=== PATIENT | female | born 1995 | race Caucasian/White ===

== ENCOUNTER 2017-05-26 14:48 | Emergency (ER) | payer OTHER ==
[~2017-05-26] VITALS: Ht 172.7 cm; Wt 70.3 kg
[~2017-05-26 14:48] MED LIST: ONDANSETRON 4 MG/2 ML VIAL IVP STA
--- NOTE | 2017-05-26 14:48 | NUR ---
TAKEN TO TRIAGE VIA WHEELCHAIR---IV STARTED MD NOTIFIED
--- NOTE | 2017-05-26 14:48 | NUR ---
LARGE EMESIS IN TRIAGE---NO BRIGHT RED BLOOD NOTED IN EMESIS
[2017-05-26] MEDS ORDERED: ONDANSETRON 4 MG/2 ML VIAL ONE (14:53)
[2017-05-26 15:00] VITALS: BP 79/50
--- NOTE | 2017-05-26 15:04 | NUR ---
BLOOD COLLECTED AT IV START
--- NOTE | 2017-05-26 15:15 | NUR ---
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 PT REPORTS N/V. PT DENIES ANY PAIN, SOB, OR CP. PT IS PALE. PT IS AOX4. RR ARE EVEN AND UNLABORED. ER MD AWARE OF PT STATUS. NAD AT THIS TIME.
[2017-05-26] MEDS ORDERED: NACL 0.9% 1,000 ML IV STA ×2 (15:28→16:30)
[2017-05-26 15:43] LABS: APPEARANCE,URINE CLEAR (CLEAR); BILIRUBIN,URINE 1+ (NEGATIVE); BLOOD, URINE NEGATIVE (NEGATIVE); COLOR,URINE YELLOW (YELLOW); LEUKOCYTE ESTERASE ,URINE NEGATIVE (NEGATIVE); NITRITE, URINE NEGATIVE (NEGATIVE); UGLUCOSE NEGATIVE (NEGATIVE)
[2017-05-26 15:44] LABS: RBC,URINE 3-10 (FEW) /HPF (0-5); WBC,URINE 0-5 (RARE) /HPF (0-5)
[2017-05-26 15:49] LABS: BASOPHILS # (AUTO) 0.2 K/uL (0.00-0.22); BASOPHILS % (AUTO) 1.7 % (0.0-2.0); EOSINOPHILS # (AUTO) 0.2 K/uL (0-0.4); EOSINOPHILS % (AUTO) 1.2 % (0.0-4.0); HEMOGLOBIN 11.7 g/dL (12.0-16.0); LYMPHOCYTES # (AUTO) 2.4 K/uL (2.5-16.5); LYMPHOCYTES % (AUTO) 17.1 % (20.5-51.1); MEAN CORPUSCULAR HEMOGLOBIN 24 pg (27-31); MEAN CORPUSCULAR HGB CONC 32 g/dL (33-37); MEAN CORPUSCULAR VOLUME 75 fL (80-94); MONOCYTES % (AUTO) 7.1 % (1.7-9.3); NEUTROPHILS # (AUTO) 10.5 K/uL (1.8-7.7); NEUTROPHILS % (AUTO) 72.9 % (42.2-75.2); PLATELET COUNT (AUTO) 449 K/uL (140-450); RED BLOOD CELL COUNT(AUTO) 4.95 MIL/uL (4.20-5.40); RED CELL DISTRIBUTION WIDTH 17.8 % (11.6-13.7); WHITE BLOOD COUNT (AUTO) 14.3 K/uL (4.8-10.8)
[2017-05-26 15:52] LABS: ANION GAP 14.5 (8-16); CARBON DIOXIDE 27.9 mmol/L (21-32); CREATININE 1.2 mg/dL (0.6-1.3); POTASSIUM 3.4 mmol/L (3.5-5.1)
[2017-05-26 15:54] LABS: PROTHROMBIN TIME 11.2 secs (10.8-13.4)
[2017-05-26 15:58] LABS: TOTAL BILIRUBIN 0.7 mg/dL (0.0-1.0)
--- NOTE | 2017-05-26 16:40 | NUR ---
NS BOLUS D/C PER ER MD ORDER. END TIME FOR NS BOLUS. TOTAL AMOUNT INFUSED 2CC.
[2017-05-26 17:17] VITALS: BP 126/75
--- NOTE | 2017-05-26 17:17 | NUR ---
Patient discharged with v/s stable. Written and verbal after care instructions given and explained. Patient verbalized understanding. Ambulatory with steady gait. All questions addressed prior to discharge. Advised to follow up with PMD.
== END 2017-05-26 17:17 | disposition home or self-care (01) ==
LOC: MED 14:48
DX: R55 Syncope and collapse (principal); E86.0 Dehydration; D64.9 Anemia, unspecified
CPT/HCPCS: 36415; 80053; 81001; 81025; 85025; 85045; 85610; 86886; 86900; 86901; 93005; 96361; 96374; 99285; J2405; J7030

== ENCOUNTER 2017-12-01 06:40 | Emergency (ER) | payer OTHER ==
[~2017-12-01] VITALS: Ht 172.7 cm; Wt 68.0 kg
[2017-12-01 06:42] VITALS: BP 116/75
--- NOTE | 2017-12-01 06:53 | NUR ---
AMBULATED TO ER BED 2
[2017-12-01] MEDS ORDERED: NACL 0.9% 1,000 ML IV SCH (07:03)
--- NOTE | 2017-12-01 07:04 | NUR ---
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 PT NOW FEELS LIGHTHEADED. PT IS AWAKE AND ACTING APPROPRIATE AT THIS TIME, ABLE TO AMBULATE, EVEN STEADY GAIT. PT STATES SHE HAS HAD SIMILIAR S/S BEFORE . PT STATES SHE HAS NOT ATE YET TODAY. PT PROVIDED W/ ORANGE JUICE.
--- NOTE | 2017-12-01 07:06 | NUR ---
REPORT RECEIVED FROM KIKE GONZALEZ AT THIS TIME. PT W/ VSS, SAFETY PRECAUTIONS IMPLEMENTED, PT NEEDS MET.
--- NOTE | 2017-12-01 07:06 | NUR ---
REPORT GIVEN TO KIKE RYAN. TRANSFER OF CARE AT THIS TIME.
--- NOTE | 2017-12-01 07:11 | NUR ---
ER MD AT BEDSIDE AT THIS TIME EVALUATING PT.
--- NOTE | 2017-12-01 07:50 | NUR ---
XRAY AT BEDSIDE AT THIS TIME.
[2017-12-01 08:01] LABS: BASOPHILS # (AUTO) 0.1 K/uL (0.00-0.22); BASOPHILS % (AUTO) 1.2 % (0.0-2.0); EOSINOPHILS # (AUTO) 0.1 K/uL (0-0.4); EOSINOPHILS % (AUTO) 1.6 % (0.0-4.0); HEMOGLOBIN 11.7 g/dL (12.0-16.0); LYMPHOCYTES # (AUTO) 1.4 K/uL (2.5-16.5); LYMPHOCYTES % (AUTO) 16.2 % (20.5-51.1); MEAN CORPUSCULAR HEMOGLOBIN 23 pg (27-31); MEAN CORPUSCULAR HGB CONC 31 g/dL (33-37); MONOCYTES # (AUTO) 0.8 K/uL (0.8-1.0); MONOCYTES % (AUTO) 8.8 % (1.7-9.3); NEUTROPHILS # (AUTO) 6.2 K/uL (1.8-7.7); NEUTROPHILS % (AUTO) 72.2 % (42.2-75.2); PLATELET COUNT (AUTO) 383 K/uL (140-450); RED BLOOD CELL COUNT(AUTO) 5.14 MIL/uL (4.20-5.40); RED CELL DISTRIBUTION WIDTH 18.1 % (11.6-13.7); WHITE BLOOD COUNT (AUTO) 8.6 K/uL (4.8-10.8)
[2017-12-01 08:01] LABS: APPEARANCE,URINE CLEAR (CLEAR); BILIRUBIN,URINE NEGATIVE (NEGATIVE); BLOOD, URINE NEGATIVE (NEGATIVE); COLOR,URINE YELLOW (YELLOW); LEUKOCYTE ESTERASE ,URINE NEGATIVE (NEGATIVE); NITRITE, URINE NEGATIVE (NEGATIVE); UGLUCOSE NEGATIVE (NEGATIVE)
[2017-12-01 08:08] LABS: ANION GAP 9.6 (8-16); CARBON DIOXIDE 27.8 mmol/L (21-32); CREATININE 1.1 mg/dL (0.6-1.3); POTASSIUM 4.4 mmol/L (3.5-5.1)
[2017-12-01 08:15] LABS: ALBUMIN 3.8 g/dL (3.4-5.0); TOTAL BILIRUBIN 0.2 mg/dL (0.0-1.0)
[2017-12-01 08:17] LABS: PROTHROMBIN TIME 9.4 secs (10.8-13.4)
[2017-12-01 09:41] VITALS: BP 119/76
== END 2017-12-01 09:41 | disposition home or self-care (01) ==
LOC: MED 06:40
DX: R55 Syncope and collapse (principal)
CPT/HCPCS: 36415; 71045; 80053; 81003; 81025; 83880; 84484; 84703; 85025; 85610; 85730; 93005; 96360; 96361; 99285; Q0092; J7030

== ENCOUNTER 2018-04-21 14:51 | Outpatient (CLI) | payer OTHER ==
[2018-04-21 15:36] LABS: BASOPHILS # (AUTO) 0.1 K/uL (0.00-0.22); BASOPHILS % (AUTO) 0.6 % (0.0-2.0); EOSINOPHILS # (AUTO) 0.1 K/uL (0-0.4); EOSINOPHILS % (AUTO) 1.3 % (0.0-4.0); HEMATOCRIT 32.7 % (36-48); HEMOGLOBIN 9.8 g/dL (12.0-16.0); LYMPHOCYTES # (AUTO) 1.5 K/uL (2.5-16.5); LYMPHOCYTES % (AUTO) 15.3 % (20.5-51.1); MEAN CORPUSCULAR HEMOGLOBIN 21 pg (27-31); MEAN CORPUSCULAR HGB CONC 30 g/dL (33-37); MEAN CORPUSCULAR VOLUME 69.8 fL (80-94); MONOCYTES # (AUTO) 0.9 K/uL (0.8-1.0); MONOCYTES % (AUTO) 9.7 % (1.7-9.3); NEUTROPHILS # (AUTO) 7.1 K/uL (1.8-7.7); NEUTROPHILS % (AUTO) 73.1 % (42.2-75.2); PLATELET COUNT (AUTO) 428 K/uL (140-450); RED BLOOD CELL COUNT(AUTO) 4.69 MIL/uL (4.20-5.40); RED CELL DISTRIBUTION WIDTH 17.9 % (11.6-13.7); WHITE BLOOD COUNT (AUTO) 9.8 K/uL (4.8-10.8)
[2018-04-21 16:19] LABS: APPEARANCE,URINE HAZY (CLEAR); BILIRUBIN,URINE NEGATIVE (NEGATIVE); BLOOD, URINE NEGATIVE (NEGATIVE); COLOR,URINE YELLOW (YELLOW); LEUKOCYTE ESTERASE ,URINE TRACE (NEGATIVE); NITRITE, URINE NEGATIVE (NEGATIVE); PH,URINE 7.5 (5.0-9.0); UGLUCOSE NEGATIVE (NEGATIVE)
[2018-04-21 16:20] LABS: RBC,URINE 0-5 (RARE) /HPF (0-5)
[2018-04-21 21:47] LABS: CREATININE 0.9 mg/dL (0.6-1.3)
[2018-04-21 22:00] LABS: TOTAL BILIRUBIN 0.3 mg/dL (0.0-1.0)
[2018-04-21 22:01] LABS: FREE T4 (FREE THYROXINE) 0.99 ng/dL (0.76-1.46); THYROID STIMULATING HORMONE 2.29 uIU/mL (0.34-3.74)
[2018-04-21 22:24] LABS: CHOL/HDL RATIO 2.3 (1-4.5)
[2018-04-22 06:13] LABS: HEPATITIS A ANTIBODY IGM Negative (Negative); HEPATITIS B SURFACE ANTIGEN Negative (Negative)
[2018-04-26 14:40] LABS: CHLAMYDIA TRACHOMATIS AMP DNA POSITIVE (NEGATIVE)
== END 2018-04-21 21:07 | disposition home or self-care (01) ==
LOC: MLB 14:51
PROVIDERS: ATTEND Family Medicine
DX: Z11.3 Encounter for screening for infections with a predominantly sexual mode of transmission (principal); Z00.00 Encounter for general adult medical examination without abnormal findings
CPT/HCPCS: 36415; 80053; 80074; 81001; 83036; 84439; 84443; 85025; 86592; 86702; 87086; 87491

== ENCOUNTER 2018-09-11 17:12 | Emergency (ER) | payer OTHER ==
[~2018-09-11] VITALS: Ht 172.7 cm; Wt 74.8 kg
[2018-09-11 17:42] VITALS: BP 134/77
--- NOTE | 2018-09-11 19:20 | NUR ---
PT TAKEN TO CHAIR B.
--- NOTE | 2018-09-11 19:30 | NUR ---
23/M C/O LEFT ARM PAIN X1 WEEK. PT REPORTS GETTING A TATTOO LAST TUESDAY. 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 REDNESS NOTED TO LEFT ARM, NO DRAINGE PRESENT.
[2018-09-11] MEDS ORDERED: cefTRIAXone 1,000 MG in LIDOCAINE MPF 1% - 5 mL VIAL 2.1 ML IM ONE (19:40)
[2018-09-11 20:13] VITALS: BP 125/70
--- NOTE | 2018-09-11 20:13 | NUR ---
Patient discharged with v/s stable. Written and verbal after care instructions given and explained. Patient alert, oriented and verbalized understanding of instructions. Ambulatory with steady gait. All questions addressed prior to discharge. ID band removed. Patient advised to follow up with PMD. Rx of Bactrim DS, Keflex, Motrin given. Patient educated on indication of medication including possible reaction and side effects. Opportunity to ask questions provided and answered.
== END 2018-09-11 20:13 | disposition home or self-care (01) ==
LOC: MED 17:12
DX: L03.114 Cellulitis of left upper limb (principal); Z90.5 Acquired absence of kidney; Z98.890 Other specified postprocedural states
CPT/HCPCS: 36415; 83655; 90471; 90715; 96372; 99283; J0696; J2001

== ENCOUNTER 2018-11-13 06:55 | Emergency (ER) | payer OTHER ==
[~2018-11-13] VITALS: Ht 172.7 cm; Wt 72.6 kg
--- NOTE | 2018-11-13 07:02 | NUR ---
PT AMBULATED TO BED 11
[2018-11-13 07:04] VITALS: BP 114/72
--- NOTE | 2018-11-13 07:10 | NUR ---
BIB SELF. AAO X4 C/O SORETHROAT, RT EAR SINCE TUESDAY. PT STATES THAT SHE SAW "WHITE PATCHES ON RIGHT TONSIL.", BUT NO WHITE PATCHES UPON ASSESSING PT. PT STATES PAIN OF 7/10 TO THROAT WITH DIFFICULTY SWALLOWING, COUGH WITH LIGHT GREEN TINGE PHLEGM. PT DENIES FEVER, N/V/D, SOB. PT TOOK TYLENOL ON TUESDAY WITH NO RELIEF. EQUAL ANA LUNGS UPON AUSCULTATION. HOB UP. BED SIDE RAILS UP X1. ON LOW BED POSITION, LOCKED. ER TO EVALUATE PT.
--- NOTE | 2018-11-13 07:16 | NUR ---
PT AMBULATED TO THE BATHROOM WITH STEADY GAIT TO GIVE URINE SPECIMEN
--- NOTE | 2018-11-13 07:20 | NUR ---
DR CLOUD AT BEDSIDE FOR PT EVALUATION
[2018-11-13] MEDS: KETOROLAC 60 MG/2 ML VIAL IM ONE (07:38)
[2018-11-13 08:00] VITALS: BP 112/68
--- NOTE | 2018-11-13 08:00 | NUR ---
Patient discharged with v/s stable. Written and verbal after care instructions given and explained. Patient alert, oriented and verbalized understanding of instructions. Ambulatory with steady gait. All questions addressed prior to discharge. ID band removed. Patient advised to follow up with PMD. Rx of PREDNISONE, MOTRIN 800 MG given. Patient educated on indication of medication including possible reaction and side effects. Opportunity to ask questions provided and answered.
== END 2018-11-13 08:00 | disposition home or self-care (01) ==
LOC: MED 06:55 → EEVIPCON 06:55 → MED 08:00
DX: J02.9 Acute pharyngitis, unspecified (principal); F17.210 Nicotine dependence, cigarettes, uncomplicated; Z98.890 Other specified postprocedural states
CPT/HCPCS: 81002; 81025; 96372; 99283; J1885